=== PATIENT | male | born 1990 | race Caucasian/White ===

== ENCOUNTER 2017-08-22 00:22 | Emergency (ER) | payer OTHER ==
[2017-08-22 01:39] VITALS: BP 146/84
== END 2017-08-22 01:39 | disposition home or self-care (01) ==
LOC: ED 00:22
DX: R06.00 Dyspnea, unspecified (principal); R07.9 Chest pain, unspecified; R06.02 Shortness of breath
CPT/HCPCS: Q0092

== ENCOUNTER 2019-04-08 21:10 | Emergency (ER) | payer OTHER ==
[~2019-04-08] VITALS: Ht 167.6 cm; Wt 73.5 kg
[2019-04-08 21:14] VITALS: Ht 167.6 cm; Wt 73.5 kg
[2019-04-08 22:04] VITALS: BP 132/77
== END 2019-04-08 22:04 | disposition home or self-care (01) ==
LOC: ED 21:10
DX: R06.00 Dyspnea, unspecified (principal); R07.89 Other chest pain; R06.02 Shortness of breath
CPT/HCPCS: J2001